=== PATIENT | male | born 1955 | race Caucasian/White ===

== ENCOUNTER 2018-10-02 15:03 | Outpatient (CLI) | payer BC ==
--- NOTE | 2018-10-02 15:50 | RAD ---
PA CHEST RADIOGRAPH WITH 2 VIEWS LEFT RIBS: DATE: 10/02/2018. PROVIDED CLINICAL HISTORY: Left rib pain status post injury. FINDINGS: Cardiac and mediastinal silhouette is within normal limits. No focal consolidation, pleural fluid, o r pneumothorax apparent. No evidence for displaced left-sided rib fracture. IMPRESSION: 1. No evidence for an acute cardiopulmonary process. 2. No evidence for displaced left-sided rib fracture. POS: [facility]
== END 2018-10-02 15:04 | disposition home or self-care (01) ==
LOC: SCSRAD 15:03
PROVIDERS: ATTEND Family Medicine
DX: R07.81 Pleurodynia (principal)